=== PATIENT | female | born 1975 | race Caucasian/White ===

== ENCOUNTER 2023-02-16 22:39 | Emergency (ER) | payer OTHER, SELFPAY ==
[2023-02-16 22:43] VITALS: BP 139/99; PULSE 77; RESP 20; TEMP 36.6; O2SAT 99
[2023-02-16 23:05] LABS: Basophils Percent Auto 0.4 % (0.2-1.2); Eosinophils Absolute Auto 0.2 K/mm3 (0-0.3); Eosinophils Percent Auto 2.3 % (0-4.4); Hematocrit 38.3 % (37.0-47.0); Hemoglobin 13.2 g/dL (12.0-15.0); Immature Granulocyte Absolute 0.02 K/mm3 (0.00-0.031); Immature Granulocyte Percent A 0.3 % (0-0.5); Lymphocytes Absolute Auto 2.95 K/mm3 (0.9-3.2); Lymphocytes Percent Auto 42.5 % (18.3-44.2); Mean Corpuscular HGB Conc 34.5 g/dl (32-36); Mean Corpuscular Hemoglobin 30.7 pg (26-34); Mean Corpuscular Volume 89.1 fl (80-100); Monocytes Absolute Auto 0.7 K/mm3 (0.1-0.6); Monocytes Percent Auto 9.9 % (2.6-8.5); Neutrophils Absolute Auto 3.1 K/mm3 (1.3-6.7); Neutrophils Percent Auto 44.6 % (45.5-73.1); Platelet Count Result 296 k/mm3 (150-375); Red Cell Distribution Width 12.7 % (11.5-14.5); White Blood Count 6.9 K/mm3 (4.5-10.0)
[2023-02-16 23:11] LABS: Appearance Urine Clear (Clear); Bacteria Urine None Seen /hpf; Bilirubin Urine Negative (Negative); Blood Urine Negative (Negative); Color Urine Yellow (Yellow); Glucose Urine UA Negative (Negative); Ketones Urine Negative (Negative); Leukocyte Esterase Ur Trace LEU/UL (Negative); Nitrate Urine Negative (Negative); Non Pathogenic Casts 0-2; Protein Urine Negative (Negative); RBC Urine 0-2 /hpf (0-2); Specific Grav Ur 1.012 (1.001-1.035); Squamous Epithelial Cell Urine None seen /hpf (Few); Urobilinogen Urine 0.2 mg/dL (<2.0); WBC Urine 0-5 /hpf
[2023-02-16 23:23] LABS: Alanine Aminotransferase 20 U/L (6-35); Albumin Level 4.4 g/dL (3.5-5.1); Alkaline Phosphatase 54 U/L (38-126); Anion Gap 5 mmol/L (8-16); Aspartate Amino Transferase 24 U/L (14-36); Bilirubin,Total 0.4 mg/dL (0.2-1.3); Blood Urea Nitrogen 12 mg/dL (7-17); Calcium 8.5 mg/dL (8.4-10.2); Carbon Dioxide 29 mmol/L (22-30); Chloride 104 mmol/L (98-107); Estimated CRCL calculation 94 ml/min; Estimated Glomerular Filt Rate > 60; Glucose 110 mg/dL (65-110); Potassium 3.7 mmol/L (3.4-5.0); Sodium 138 mmol/L (137-145)
[2023-02-16 23:43] LABS: Add Urine Microscopic? YES
[2023-02-17] VITALS: BP 140/76; PULSE 76; RESP 16; O2SAT 100
[2023-02-17] MEDS: KETOROLAC 30 MG/ML VIAL (*BKC) IM (00:14)
--- NOTE | 2023-02-17 00:14 | ED.FEMALEGU ---
HPI - Female Genitourinary General Chief complaint: Urogenital-Female Stated complaint: lower back pain Time Seen by Provider: 02/16/23 23:50 History of Present Illness HPI Narrative: 47 year old female here for evaluation of low back pain x1 day. Patient states that the pain developed gradually over the past day, is worse with certain movements of her thorax and is present in her paraspinal muscles of her lumbar spine. She denies any trauma or known injury to the back. She attempted ibuprofen and lidocaine patch earlier today with good relief. She expresses concern over a kidney stone because she had an episode of dark urine this morning. Patient states that she drinks nothing but soda yesterday. After she had dark urine she increased her water intake and this improved. She denies any dysuria, urgency or frequency, hematuria, incontinence or retention of bowel or bladder, saddle anesthesia. Related Data Allergies Allergy/AdvReac Type Severity Reaction Status Date / Time tramadol Allergy Mild RASH Verified 02/16/23 22:40 Review of Systems Review of Systems: Gen.: Denies fevers or chills Eyes: Denies eye pain or visual change ENT: Denies congestion Respiratory: Denies shortness of breath or cough CV: Denies chest pain or palpitations GI: Denies abdominal pain nausea, emesis or diarrhea reports dark urine. Denies burning, urgency, frequency or hematuria Musculoskeletal: Reports back pain Neuro: Denies numbness, tingling, weakness or focal weakness Skin: Denies rash Except as documented, all other systems reviewed and negative Exam Narrative: APPEARANCE: Well appearing, no pain in distress, well-nourished. Head: Normocephalic and atraumatic. EYES: PERRLA/EOMI, conjunctivae clear NOSE: No nasal drainage EARS: External ear normal in appearance THROAT: Oropharynx is clear. Mucous membranes are moist. NECK: Supple. No adenopathy, no masses. RESPIRATORY: Airway patent, respirations nonlabored. Clear to auscultation bilaterally, no rales, rhonchi, wheezing. CARDIOVASCULAR: Regular rate and rhythm without murmurs, rubs, or gallops. ABDOMINAL: Normoactive bowel sounds. Soft, nontender, nondistended. No rebound tenderness or guarding. MUSCULOSKELETAL: There is no midline tenderness to C, T or L-spine. There are palpable muscle spasms in the bilateral lumbar region. No CVA tenderness. NEURO: Normal speech. No focal neurologic deficits. SKIN: Skin is warm and dry. No rashes. PSYCHIATRIC: Normal affect/mood. Course Vital Signs Vital signs: Vital Signs Temperature 97.8 F 02/16/23 22:43 Pulse Rate 77 02/16/23 22:43 Respiratory Rate 20 02/16/23 22:43 Blood Pressure 139/99 H 02/16/23 22:43 Pulse Oximetry 99 02/16/23 22:43 Oxygen Delivery Room Air 02/16/23 22:43 Temperature 97.8 F 02/16/23 22:43 Pulse Rate 77 02/16/23 22:43 Respiratory Rate 20 02/16/23 22:43 Blood Pressure 139/99 H 02/16/23 22:43 Pulse Oximetry 99 02/16/23 22:43 Oxygen Delivery Room Air 02/16/23 22:43 MDM - Female Genitourinary MDM Narrative Medical decision making narrative: 47-year-old female here for evaluation of low back pain over the past day presenting with concerns for kidney stone. Patient's pain not consistent with kidney stone type pain given the location and quality. Her urine does not have any red blood cells. She is not having any urinary symptoms currently. Shared decision making was used with patient, offered imaging and further work-up which she declined at this time. We will treat pain with Toradol, return precautions were discussed and she voiced understanding. Lab Data 02/16/23 22:54 02/16/23 22:54 Labs: Lab Results 02/16/23 02/16/23 02/16/23 Range/Units 22:53 22:54 22:54 WBC 6.9 (4.5-10.0) K/mm3 RBC 4.30 (4.2-5.4) M/mm3 Hgb 13.2 (12.0-15.0) g/dL Hct 38.3 (37.0-47.0) % MCV 89.1 (80-100) fl MCH 30.7 (26-34) pg MCHC 34.5
== END 2023-02-17 00:21 | disposition home or self-care (01) ==
PROVIDERS: Emergency Medicine; Emergency Provider Physician Assistant
DX: S39.012A Strain of muscle, fascia and tendon of lower back, initial encounter (principal); X58.XXXA Exposure to other specified factors, initial encounter
CPT/HCPCS: 36415; 80053; 81001; 81025; 85025; 96372; 99283; J1885

== ENCOUNTER 2023-07-31 14:43 | Outpatient (CLI) | payer OTHER, SELFPAY ==
--- NOTE | ~2023-07-31 | XR_ITS ---
EXAMINATION: XR chest 2V 07/31/2023 15:27 INDICATION: Cough. Tobacco use. PROCEDURE: 2 view chest COMPARISON: No prior studies for comparison. FINDINGS: The lungs are clear. The cardiomediastinal silhouette is within normal limits. There are no pleural effusions. There is no pneumothorax suspected. There are changes of left clavicular oste otomy. IMPRESSION: 1: NO ACUTE CARDIOPULMONARY DISEASE. Reviewed, dictated and finalized at location B.
--- NOTE | ~2023-07-31 | MM_ITS ---
EXAMINATION: MM screening leonor BI w oumar HISTORY: Screening mammogram TECHNIQUE: Craniocaudal and mediolateral oblique 3-D tomosynthesis images were obtained and synthetic 2-D images were generated. CAD analysis was submitted and interpreted. COMPARISON: No prior mammogram is available for comparison at this institution. BREAST PARENCHYMAL COMPOSITION: The breasts are heterogeneously dense, which may obscure small masses . FINDINGS: There is no evidence of suspicious mass, calcification, or architectural distortion to sugg est malignancy in either breast. IMPRESSION: 1. No mammographic evidence of malignancy. 2. Recommend routine screening mammography in one year. BI-RADS Category 1: Negative Reviewed, dictated and finalized at location A.
== END 2023-07-31 14:44 | disposition home or self-care (01) ==
PROVIDERS: PCP Emergency Medicine; Visit Provider Emergency Medicine
DX: Z12.31 Encounter for screening mammogram for malignant neoplasm of breast (principal); Z72.0 Tobacco use
CPT/HCPCS: 71046; 77063; 77067